=== PATIENT | male | born 1960 | race Caucasian/White ===

== ENCOUNTER 2020-05-16 19:59 | Emergency (ER) | payer OTHER, SELFPAY ==
[2020-05-16 20:10] VITALS: BP 160/91; PULSE 75; RESP 16; TEMP 36.4; O2SAT 99; BMI 29.9
[2020-05-16] MEDS: LIDO 1%/SOD BICARB 8.4% (10ML) 10 ML SYRINGE INJ (20:15)
[2020-05-16] MEDS: BACITRACIN OINT 0.9 GM PCKT 1 APPLIC TOP (20:15)
[2020-05-16 20:37] VITALS: PULSE 75; O2SAT 97
[2020-05-16 21:00] VITALS: PULSE 72; O2SAT 94
[2020-05-16 21:44] VITALS: BP 154/79; PULSE 84; RESP 16; O2SAT 97
--- NOTE | 2020-05-17 03:24 | ED_ITS ---
HPI - Wound/Laceration General Chief Complaint: Wound/Laceration Stated Complaint: RT Thumb laceration Time Seen by Provider: 05/16/20 20:00 Source: patient and family Mode of arrival: Ambulatory Limitations: no limitations History of Present Illness HPI narrative: 59-year-old male nonsmoker with noncontributory medical history presents with his in the chief complaint of an accidental laceration to the tip of his right thumb. He states he was using a mandoline while preparing an oyster dinner when he accidentally cut himself. He states there is tissue loss and he was able to control bleeding with the bandage she placed at home. He has pain but denies any numbness, tingling or weakness. He denies other injury. He states his tetanus was updated last week. Onset (ago): minute(s) Extremity Location: Right: hand Place: home Patient tetanus UTD: Yes Context: accidental Associated symptoms: pain Treatments prior to arrival: bandage Related Data Previous Rx's Medication Instructions Recorded cephalexin [Keflex] 500 mg PO QID 7 Days #28 cap 05/16/20 Review of Systems Constitutional Constitutional: Denies chills, Denies fatigue, Denies fever(s), Denies frequent falls, Denies lethargy and Denies weakness Eyes Eyes: Denies change in vision, Denies eye discharge, Denies irritation and Denies loss of vision ENT Ears, Nose, Mouth, and Throat: Denies change in voice, Denies dizziness, Denies neck pain, Denies sore throat and Denies throat swelling Cardiovascular Cardiovascular: Denies chest pain, Denies irregular heart rhythm, Denies lightheadedness, Denies palpitations, Denies dyspnea, Denies dyspnea on exertion and Denies orthopnea Respiratory Respiratory: Denies cough, Denies dyspnea, Denies dyspnea on exertion and Denies wheezing Gastrointestinal Gastrointestinal: Denies abdominal pain, Denies change in bowel habits, Denies diarrhea, Denies nausea and Denies vomiting Musculoskeletal Musculoskeletal: Denies neck pain and Denies numbness Integumentary/Breasts Skin/Breast: Denies pruritus, Denies erythema, Denies rash and Reports wounds Neurologic Neurologic: Denies behavioral changes, Denies confusion, Denies dizziness, Denies frequent falls, Denies loss of vision, Denies numbness and Denies w eakness Psychiatric Psychiatric: Denies anxiety, Denies behavioral changes, Denies confusion, Denies depression, Denies homicidal ideation and Denies suicidal ideation Endocrine Endocrine: Denies fatigue, Denies flushing and Denies palpitations Hematologic/Lymphatic Hematologic/Lymphatic: Denies easy bruising Allergic/Immunologic Allergic/Immunologic: Denies urticaria, Denies throat swelling and Denies wheezing Patient History Smoking Status: Never smoker alcohol intake frequency: 0-2 drinks per day Substance Use Type: does not use Exam Narrative Exam Narrative: GEN: AOx3 and in mild distress EYES: Pupils are equal, round, and reactive to light and accommodation. Extraoccular muscles are intact bilaterally. There is no subconjunctival hemorrhage or exudate. CHEST: Lungs are clear to auscultation bilaterally and free of wheezes, rales, or rhonchi. Heart rate is regular rhythm, there are no murmurs, clicks, rubs, or gallops. There is no chest wall tenderness. ABD: Abdomen is soft and nontender. There is no guarding or rebound. Bowel sounds are normal in all 4 quadrants. There is no mass or organomegaly. EXT: 1.0 x 0.3cm avulsion laceration of the tip of the right thumb with active bleeding. No deep structures involved. Patient has full painless range of motion. Sensation intact SKIN: Warm, pink, and dry. No erythema or rash Initial Vital Signs Initial Vital Signs: Vital Signs Temperature 97.5 F L 05/16/20 20:10 Pulse Rate 75 05/16/20 20:10 Respiratory Rate 16 05/16/20 20:10 Blood Pressure 160/91 H 05/16/20 20:10 Pulse Oximetry 99 05/16/20 20:10 Procedures Laceration Repair Laceration 1: Site: hand Side (If applicable): right Size (cm): 1 Description: irregular Depth: simple, single layer Pre-repair: deep structures intact (Single suture placed for hemostasis) Technique: simple, interrupted Nerve Block Nerve Block 1: Time out performed: Yes Local Anesthetic: lidocaine 1% and with bicarb Amount of anesthesia used (mL): 3 Side: right Nerve Blocks: digital Procedure Successful: Yes Patient Tolerated Procedure: Well Complications: none Course Course Course Narrative: Single suture placed for hemostasis. Extensive cleaning at the bedside by myself. Surgicel and tube gauze placed. Extensive discussion with the patient and his above the importance of follow-up and wound care. Return precautions given, questions answered to their apparent satisfaction Orders Ordered: Discontinued Medications Bacitracin (Bacitracin Oint 0.9 Gm Pckt) 1 applic TOP NOW ONE Stop: 05/16/20 20:10 Last Admin: 05/16/20 20:15 Dose: 1 applic Documented by: ALLIE Lidocaine/Sodium Bicarbonate (Lido 1%/Sod Bicarb 8.4% (10ml) 10 Ml Syringe) 10 ml INJ NOW ONE Stop: 05/16/20 20:10 Last Admin: 05/16/20 20:15 Dose: 10 ml Documented by: ALLIE Vital Signs Vital signs: Vital Signs - 8 hr 05/16/20 20:10 05/16/20 20:37 05/16/20 21:00 Temperature 97.5 F L Pulse Rate 75 75 72 Respiratory Rate 16 Blood Pressure 160/91 H Pulse Oximetry 99 97 94 05/16/20 21:44 Temperature Pulse Rate 84 Respiratory Rate 16 Blood Pressure 154/79 H Pulse Oximetry 97 Discharge Plan Departure Patient Disposition: Home Clinical Impression: Avulsion of skin Instructions: How to Care for a Laceration After Repair, DI for Minor Lace ration Activity Restrictions/Additional Instructions: *You have been diagnosed with [right thumb laceration with avulsion. One stitch was placed to control bleeding.] *What to do: *Take medications as directed: Prescription for an antibiotic was sent to [facility] *Follow up with your primary care provider in 2-3 days, call for an appointment. Let them know you were seen in the Emergency Department and that we ask that you be seen in follow up *Return to ER if you should have any new, worsening or concerning symptoms, such as [ increasing pain, swelling, bleeding, drainage or other bothersome symptoms] Prescriptions: New cephalexin [Keflex] 500 mg capsule 500 mg PO QID 7 Days Qty: 28 RF: 0
== END 2020-05-16 21:45 | disposition home or self-care (01) ==
PROVIDERS: Emergency Provider Emergency Medicine
DX: S61.011A Laceration without foreign body of right thumb without damage to nail, initial encounter (principal); W26.9XXA Contact with unspecified sharp object(s), initial encounter
CPT/HCPCS: 12001; 99281; 99283